=== PATIENT | female | born 1950 ===

== ENCOUNTER → 2016-04-13 | Outpatient (CLI) | payer MEDICARE, OTHER ==
[~2016-04-13] VITALS: Ht 144.8 cm; Wt 52.0 kg
[~2016-04-13] MED LIST: ASPI-556 PO; ATOR10TA84 PO; CALC600T95 PO; CHOL200018 PO; CLON.5 PO; FENO160 PO; METF500T4 PO; NAPR375T4 PO; SERT100T12 PO; [UNRECOGNIZED DRUG - CODE] NASAL
[2016-04-13 13:47] VITALS: BP 107/59
== END | disposition home or self-care (01) ==
LOC: SRCNTR 13:33
PROVIDERS: ATTEND Internal Medicine Critical Care Medicine
DX: I10 Essential (primary) hypertension (principal); E78.5 Hyperlipidemia, unspecified; E11.9 Type 2 diabetes mellitus without complications; R91.1 Solitary pulmonary nodule; F32.9 Major depressive disorder, single episode, unspecified; J44.9 Chronic obstructive pulmonary disease, unspecified
CPT/HCPCS: G0463

== ENCOUNTER → 2016-06-20 | Outpatient (CLI) | payer MEDICARE, OTHER ==
[~2016-06-20] VITALS: Ht 144.8 cm; Wt 53.5 kg
[2016-06-20 12:57] VITALS: BP 131/48
== END | disposition home or self-care (01) ==
LOC: SRCNTR 12:46
PROVIDERS: ATTEND Internal Medicine Critical Care Medicine
DX: J44.9 Chronic obstructive pulmonary disease, unspecified (principal); R91.8 Other nonspecific abnormal finding of lung field; E11.9 Type 2 diabetes mellitus without complications; I10 Essential (primary) hypertension; E78.5 Hyperlipidemia, unspecified; F32.9 Major depressive disorder, single episode, unspecified
CPT/HCPCS: G0463